=== PATIENT | female | born 1945 | race African-American/Black ===

== ENCOUNTER 2023-10-17 10:52 | Inpatient (IN) | payer MEDICARE, BC ==
[~2023-10-17] VITALS: Ht 152.4 cm; Wt 76.3 kg
[2023-10-17 12:11] LABS: BASOPHILS % 0.7 % (0.0-2.0); EOSINOPHILS % 2.9 % (0.0-5.0); HEMATOCRIT. 33.8 % (36.0-48.0); LYMPHOCYTES % 9.8 % (20.0-50.0); MEAN CORPUSCULAR HEMOGLOBIN 28.7 pg (28.0-32.0); MEAN CORPUSCULAR HGB CONC 32.5 g/dL (31.0-37.0); MEAN CORPUSCULAR VOLUME 88.4 fL (81.0-99.0); MEAN PLATELET VOLUME 7.9 fl (7.4-10.4); NEUTROPHILS % 78.6 % (40.0-76.0); PLATELET 291 x1000/uL (130-400); RED BLOOD CELL COUNT 3.82 mill/uL (4.2-5.4); RED CELL DISTRIBUTION WIDTH 16.2 % (11.6-14.6); WHITE BLOOD COUNT 4.8 x1000/uL (4.5-11.0)
[2023-10-17] MEDS ORDERED: SODIUM CHLORIDE 0.9% 1000ML BAG (SEPSIS BOLUS) IV ONE (12:30)
[2023-10-17] MEDS ORDERED: ASPIRIN 81MG TABLET PO ONE (12:30)
[2023-10-17] MEDS ORDERED: CEFTRIAXONE 1GM PREMIX 50 ML IV ONE (12:30)
[2023-10-17] MEDS ORDERED: AZITHROMYCIN 500MG/250ML 250 ML IV ONE (12:30)
[2023-10-17 12:40] LABS: ALANINE AMINOTRANSFERASE 26 IU/L (10-49); ALBUMIN 3.8 g/dL (3.2-4.8); ASPARTATE AMINOTRANSFERASE 26 IU/L (<34); BILIRUBIN TOTAL 0.7 mg/dL (0.1-1.0); CALCIUM 9.3 mg/dL (8.7-10.4); CARBON DIOXIDE 31 mEq/L (21-32); CHLORIDE 103 mEq/L (98-107); CREATININE 1.9 mg/dL (0.6-1.0); GLUCOSE 117 mg/dL (70-105); POTASSIUM 3.9 mEq/L (3.5-5.1); PROTEIN TOTAL 6.1 g/dL (6.0-8.3); SODIUM 140 mEq/L (136-145); UREA NITROGEN BLOOD 18 mg/dL (9-23)
[2023-10-17 12:42] LABS: PROTHROMBIN TIME 10.9 sec (9.6-11.0)
[2023-10-17 12:48] LABS: TROPONIN I HIGH SENSITIVITY 52 ng/L (3.0-34)
[2023-10-17 13:28] LABS: CLARITY URINE CLEAR (CLEAR); COLOR URINE YELLOW (YELLOW); GLUCOSE URINE NEGATIVE (NEGATIVE); KETONES URINE NEGATIVE (NEGATIVE); LEUKOCYTE ESTERASE URINE NEGATIVE (NEGATIVE); NITRITE URINE NEGATIVE (NEGATIVE); OCCULT BLOOD URINE TRACE (NEGATIVE); PROTEIN URINE 1+ (NEGATIVE); SPECIFIC GRAVITY URINE 1.008 (1.005-1.030); UROBILINOGEN URINE 0.2 E.U./dL (0.2-1.0)
[2023-10-17] MEDS ORDERED: FUROSEMIDE 40MG/4ML VIAL IVP ONE (13:30)
[2023-10-17] MEDS ORDERED: OSELTAMIVIR 75MG CAPSULE PO ONE (13:30)
[2023-10-17 13:40] LABS: SQUAMOUS EPITHELIAL CELL URINE 1+ /lpf (RARE/1+)
[2023-10-17 13:41] LABS: BACTERIA URINE TRACE; RBC URINE 0-2 /hpf (0-2); WBC URINE 0-2 /hpf (0-2)
[2023-10-17 14:59] LABS: BG BASE EXCESS 4.2 mmol/L (-2.0-2.0); BG CARBOXYHEMOGLOBIN 0.8 % (0.5-1.5); BG DEOXYHEMOGLOBIN 5.7 % (0.0-5.0); BG FRACTION INSPIRED OXYGEN 40; BG HCO3 ACT 32.1 mmol/L (22.0-26.0); BG METHEMOGLOBIN 0.4 % (0.0-1.5); BG OXYGEN SATURATION 94.2 % (92.0-98.5); BG OXYHEMOGLOBIN 93.1 % (94.0-97.0); BG PCO2 66.1 mmHg (35.0-45.0); BG PH 7.304 (7.350-7.450); BG PO2 79.5 mmHg (75.0-100.0); BG SAMPLE SITE LEFT BRACHIAL; BG TOTAL HEMOGLOBIN 11.5 g/dL (12.0-18.0); BG VENT MODE NASAL CANNULA
[2023-10-17] MEDS ORDERED: TRAMADOL 50MG TABLET PO PRN (17:15)
[2023-10-17] MEDS ORDERED: CLONIDINE 0.1MG TABLET PO PRN (17:15)
[2023-10-17] MEDS ORDERED: DOCUSATE SODIUM 100MG CAPSULE PO PRN (17:15)
[2023-10-17] MEDS ORDERED: DIPHENHYDRAMINE 50MG/ML VIAL IV PRN (17:15)
[2023-10-17] MEDS ORDERED: IPRATROPIUM/ALBUTEROL 0.5-3(2.5)MG/3ML NEB HHN PRN (17:15)
[2023-10-17] MEDS ORDERED: GUAIFENESIN 200MG/10ML SUGAR FREE UDC PO PRN (17:15)
[2023-10-17] MEDS ORDERED: ONDANSETRON HCL 4MG/2ML INJ IV PRN (17:15)
[2023-10-17] MEDS ORDERED: PIPERACILLIN/TAZO 3.375G/50ML 50 ML IV NR (17:30)
[2023-10-17] MEDS: ENOXAPARIN 30MG/0.3ML SYR SUBCUT SCH (18:04)
[2023-10-18] MEDS ORDERED: PIPERACILLIN/TAZOBACTAM 3.375 G in DEXTROSE 5% WATER 50 ML IV SCH (09:00)
[2023-10-18] MEDS: ASPIRIN 81MG EC TABLET PO SCH (09:18)
[2023-10-18] MEDS: AMLODIPINE 10MG TABLET PO SCH (09:18)
[2023-10-18 09:52] LABS: EOSINOPHILS % 3.9 % (0.0-5.0); HEMATOCRIT. 35.1 % (36.0-48.0); LYMPHOCYTES % 9.2 % (20.0-50.0); MEAN CORPUSCULAR HEMOGLOBIN 28.3 pg (28.0-32.0); MEAN CORPUSCULAR HGB CONC 31.3 g/dL (31.0-37.0); MEAN CORPUSCULAR VOLUME 90.4 fL (81.0-99.0); MEAN PLATELET VOLUME 7.7 fl (7.4-10.4); MONOCYTES % 6.7 % (2.0-8.0); NEUTROPHILS % 79.2 % (40.0-76.0); PLATELET 306 x1000/uL (130-400); RED BLOOD CELL COUNT 3.88 mill/uL (4.2-5.4); WHITE BLOOD COUNT 4.4 x1000/uL (4.5-11.0)
[2023-10-18 10:33] LABS: ALANINE AMINOTRANSFERASE 25 IU/L (10-49); ALBUMIN 3.9 g/dL (3.2-4.8); ASPARTATE AMINOTRANSFERASE 23 IU/L (<34); BILIRUBIN TOTAL 0.6 mg/dL (0.1-1.0); CARBON DIOXIDE 31 mEq/L (21-32); CHLORIDE 103 mEq/L (98-107); CHOLESTEROL 144 mg/dL (<200); CREATININE 1.9 mg/dL (0.6-1.0); GLUCOSE 118 mg/dL (70-105); HDL CHOLESTEROL 55 mg/dL (>65); LDL CHOLESTEROL 56 mg/dL (5-100); POTASSIUM 3.6 mEq/L (3.5-5.1); PROTEIN TOTAL 6.7 g/dL (6.0-8.3); SODIUM 142 mEq/L (136-145); TRIGLYCERIDE 72 mg/dL (0-150); UREA NITROGEN BLOOD 18 mg/dL (9-23)
[2023-10-18 14:20] LABS: TROPONIN I HIGH SENSITIVITY 40 ng/L (3.0-34)
[2023-10-18] MEDS: ENOXAPARIN 30MG/0.3ML SYR SUBCUT SCH (18:25)
[2023-10-18] MEDS: PIPERACILLIN/TAZOBACTAM 3.375 G in DEXTROSE 5% WATER 50 ML IV SCH (22:20)
[2023-10-19] VITALS (7 sets, daily range): BP systolic 116–154; BP diastolic 57–85; PULSE 71–89; RESP 17–29; TEMP 97.5–98.1
[2023-10-19] MEDS: ACETAMINOPHEN 325MG TABLET PO PRN (06:17)
[2023-10-19] MEDS: ASPIRIN 81MG EC TABLET PO SCH (10:03)
[2023-10-19] MEDS: PIPERACILLIN/TAZOBACTAM 3.375 G in DEXTROSE 5% WATER 50 ML IV SCH (10:03)
[2023-10-19] MEDS: AMLODIPINE 10MG TABLET PO SCH (10:03)
[2023-10-19 10:38] LABS: BG BASE EXCESS 6.3 mmol/L (-2.0-2.0); BG CARBOXYHEMOGLOBIN 0.8 % (0.5-1.5); BG DEOXYHEMOGLOBIN 7.7 % (0.0-5.0); BG FRACTION INSPIRED OXYGEN 32; BG HCO3 ACT 33.6 mmol/L (22.0-26.0); BG METHEMOGLOBIN 0.6 % (0.0-1.5); BG OXYGEN SATURATION 92.2 % (92.0-98.5); BG OXYHEMOGLOBIN 90.9 % (94.0-97.0); BG PCO2 64.2 mmHg (35.0-45.0); BG PH 7.337 (7.350-7.450); BG PO2 64.8 mmHg (75.0-100.0); BG SAMPLE SITE RH; BG TOTAL HEMOGLOBIN 10.8 g/dL (12.0-18.0); BG VENT MODE NASAL CANNULA
[2023-10-19] MEDS ORDERED: NALOXONE HCL 0.4MG/ML VIAL IV PRN (19:45)
[2023-10-19] MEDS: PIPERACILLIN/TAZOBACTAM 3.375G in DEXT 5% WATER 50ML IV SCH (23:01)
[2023-10-19] MEDS: ENOXAPARIN 30MG/0.3ML SYR SUBCUT SCH (23:01)
[2023-10-20] VITALS (10 sets, daily range): BP systolic 127–146; BP diastolic 61–100; PULSE 73–88; RESP 17–27; TEMP 97.3–98.1; O2SAT 97
[2023-10-20] MEDS: PIPERACILLIN/TAZOBACTAM 3.375G in DEXT 5% WATER 50ML IV SCH ×3 (06:00→22:41)
[2023-10-20 08:56] LABS: TROPONIN I HIGH SENSITIVITY 28 ng/L (3.0-34)
[2023-10-20] MEDS: AMLODIPINE 10MG TABLET PO SCH (09:21)
[2023-10-20] MEDS: ASPIRIN 81MG EC TABLET PO SCH (09:21)
[2023-10-20] MEDS: METHYLPREDNISOLONE SOD SUCC 40MG/ML (ACT-O-VIAL) IV SCH ×2 (11:09→22:41)
[2023-10-20 16:42] LABS: BG BASE EXCESS 2.7 mmol/L (-2.0-2.0); BG CARBOXYHEMOGLOBIN 0.8 % (0.5-1.5); BG DEOXYHEMOGLOBIN 9.4 % (0.0-5.0); BG FRACTION INSPIRED OXYGEN 36; BG HCO3 ACT 30.1 mmol/L (22.0-26.0); BG METHEMOGLOBIN 0.3 % (0.0-1.5); BG OXYGEN SATURATION 90.5 % (92.0-98.5); BG OXYHEMOGLOBIN 89.5 % (94.0-97.0); BG PH 7.311 (7.350-7.450); BG PO2 62.9 mmHg (75.0-100.0); BG SAMPLE SITE LEFT BRACHIAL; BG TOTAL HEMOGLOBIN 11.4 g/dL (12.0-18.0); BG VENT MODE NASAL CANNULA
[2023-10-20] MEDS: ENOXAPARIN 30MG/0.3ML SYR SUBCUT SCH (18:36)
[2023-10-20] MEDS: IPRATROPIUM/ALBUTEROL 0.5-3(2.5)MG/3ML NEB HHN SCH (22:01)
[2023-10-21] VITALS (15 sets, daily range): BP systolic 104–128; BP diastolic 55–77; PULSE 65–90; RESP 17–23; TEMP 97.1–97.8; O2SAT 94–97
[2023-10-21] MEDS: IPRATROPIUM/ALBUTEROL 0.5-3(2.5)MG/3ML NEB HHN SCH ×4 (00:23→21:56)
[2023-10-21] MEDS: METHYLPREDNISOLONE SOD SUCC 40MG/ML (ACT-O-VIAL) IV SCH ×3 (06:04→22:16)
[2023-10-21] MEDS: PIPERACILLIN/TAZOBACTAM 3.375G in DEXT 5% WATER 50ML IV SCH ×3 (06:06→22:16)
[2023-10-21] MEDS: ASPIRIN 81MG EC TABLET PO SCH (09:03)
[2023-10-21] MEDS: AMLODIPINE 10MG TABLET PO SCH (09:03)
[2023-10-21] MEDS: ENOXAPARIN 30MG/0.3ML SYR SUBCUT SCH (17:38)
[2023-10-22] VITALS (16 sets, daily range): BP systolic 106–129; BP diastolic 48–75; PULSE 63–98; RESP 17–26; TEMP 97.2–99.1; O2SAT 95–98
[2023-10-22] MEDS: IPRATROPIUM/ALBUTEROL 0.5-3(2.5)MG/3ML NEB HHN SCH ×4 (00:52→20:37)
[2023-10-22] MEDS: METHYLPREDNISOLONE SOD SUCC 40MG/ML (ACT-O-VIAL) IV SCH ×3 (05:55→21:49)
[2023-10-22] MEDS: PIPERACILLIN/TAZOBACTAM 3.375G in DEXT 5% WATER 50ML IV SCH ×2 (05:55→15:16)
[2023-10-22] MEDS: ASPIRIN 81MG EC TABLET PO SCH (08:59)
[2023-10-22] MEDS: AMLODIPINE 10MG TABLET PO SCH (09:00)
[2023-10-22 09:46] LABS: BG BASE EXCESS 6.2 mmol/L (-2.0-2.0); BG CARBOXYHEMOGLOBIN 0.2 % (0.5-1.5); BG FRACTION INSPIRED OXYGEN 21; BG HCO3 ACT 32.4 mmol/L (22.0-26.0); BG METHEMOGLOBIN 0.3 % (0.0-1.5); BG OXYGEN SATURATION 76.9 % (92.0-98.5); BG OXYHEMOGLOBIN 76.5 % (94.0-97.0); BG PCO2 55.2 mmHg (35.0-45.0); BG PH 7.387 (7.350-7.450); BG PO2 40.4 mmHg (75.0-100.0); BG SAMPLE SITE LEFT BRACHIAL; BG TOTAL HEMOGLOBIN 10.9 g/dL (12.0-18.0); BG VENT MODE ROOM AIR
[2023-10-22] MEDS: ENOXAPARIN 30MG/0.3ML SYR SUBCUT SCH (17:35)
[2023-10-22] MEDS: ACETAMINOPHEN 325MG TABLET PO PRN (21:51)
[2023-10-22] MEDS: PIPERACILLIN/TAZO 3.375G/50ML 50 ML IV SCH (21:52)
[2023-10-23] VITALS (13 sets, daily range): BP systolic 105–132; BP diastolic 52–80; PULSE 55–96; RESP 18–24; TEMP 97.5–98.8; O2SAT 94–98
[2023-10-23] MEDS: IPRATROPIUM/ALBUTEROL 0.5-3(2.5)MG/3ML NEB HHN SCH ×4 (00:19→20:55)
[2023-10-23] MEDS: PIPERACILLIN/TAZO 3.375G/50ML 50 ML IV SCH ×3 (06:23→21:58)
[2023-10-23] MEDS: METHYLPREDNISOLONE SOD SUCC 40MG/ML (ACT-O-VIAL) IV SCH ×3 (06:23→21:55)
[2023-10-23] MEDS: ASPIRIN 81MG EC TABLET PO SCH (08:18)
[2023-10-23] MEDS: AMLODIPINE 10MG TABLET PO SCH (08:19)
[2023-10-23] MEDS: ENOXAPARIN 30MG/0.3ML SYR SUBCUT SCH (17:12)
[2023-10-24] VITALS (13 sets, daily range): BP systolic 106–134; BP diastolic 54–83; PULSE 68–93; RESP 18–25; TEMP 97.2–98.6; O2SAT 95–100
[2023-10-24] MEDS: IPRATROPIUM/ALBUTEROL 0.5-3(2.5)MG/3ML NEB HHN SCH ×4 (03:40→20:40)
[2023-10-24] MEDS: METHYLPREDNISOLONE SOD SUCC 40MG/ML (ACT-O-VIAL) IV SCH ×3 (05:16→22:31)
[2023-10-24] MEDS: ASPIRIN 81MG EC TABLET PO SCH (08:47)
[2023-10-24] MEDS: AMLODIPINE 10MG TABLET PO SCH (08:47)
[2023-10-24] MEDS: ACETAMINOPHEN 325MG TABLET PO PRN (18:59)
[2023-10-24] MEDS: ENOXAPARIN 30MG/0.3ML SYR SUBCUT SCH (19:00)
[2023-10-25] VITALS (9 sets, daily range): BP systolic 121–140; BP diastolic 63–83; PULSE 73–97; RESP 16–21; TEMP 97–97.7; O2SAT 96–97
[2023-10-25] MEDS: IPRATROPIUM/ALBUTEROL 0.5-3(2.5)MG/3ML NEB HHN SCH ×3 (02:05→14:36)
[2023-10-25] MEDS: METHYLPREDNISOLONE SOD SUCC 40MG/ML (ACT-O-VIAL) IV SCH ×2 (05:32→14:10)
[2023-10-25] MEDS: ASPIRIN 81MG EC TABLET PO SCH (09:35)
[2023-10-25] MEDS: AMLODIPINE 10MG TABLET PO SCH (09:35)
== END 2023-10-25 15:50 | disposition home health service (06) | DRG 280 ==
LOC: ER 10:52 → 5EST 14:23 → EDBEDREQ 14:28 → EDBEDREQSVC 10-18 13:45 → 5EST 10-19 18:00
PROVIDERS: ADMIT Hospitalist; ATTEND Hospitalist
DX: I21.4 Non-ST elevation (NSTEMI) myocardial infarction (principal); I50.33 Acute on chronic diastolic (congestive) heart failure; J96.01 Acute respiratory failure with hypoxia; J96.02 Acute respiratory failure with hypercapnia; N17.9 Acute kidney failure, unspecified; J44.1 Chronic obstructive pulmonary disease with (acute) exacerbation; E66.9 Obesity, unspecified; I27.20 Pulmonary hypertension, unspecified; E78.5 Hyperlipidemia, unspecified; Z20.822 Contact with and (suspected) exposure to COVID-19; R91.1 Solitary pulmonary nodule; D72.829 Elevated white blood cell count, unspecified; Z87.891 Personal history of nicotine dependence; Z90.710 Acquired absence of both cervix and uterus; Z68.32 Body mass index [BMI] 32.0-32.9, adult; Z82.5 Family history of asthma and other chronic lower respiratory diseases; I11.0 Hypertensive heart disease with heart failure
CPT/HCPCS: 36415; 36600; 71045; 71250; 80053; 80061; 81003; 82375; 82805; 83605; 83880; 84484; 85025; 87426; 87804; 93005; 93306; 93970; 94640; 97162; 97535; 99291; J0456; J0696; J1650; J1940; J2543; J2920; J7030; J7060